=== PATIENT | male | born 1985 | race Caucasian/White ===

== ENCOUNTER 2018-10-17 13:01 | Emergency (ER) | payer SELFPAY ==
[~2018-10-17] VITALS: Ht 170.1 cm; Wt 78.9 kg
== END 2018-10-17 15:24 | disposition home or self-care (01) ==
LOC: ED 13:01
DX: S20.212A Contusion of left front wall of thorax, initial encounter (principal); F17.200 Nicotine dependence, unspecified, uncomplicated; W01.0XXA Fall on same level from slipping, tripping and stumbling without subsequent striking against object, initial encounter; Y93.64 Activity, baseball; Y92.89 Other specified places as the place of occurrence of the external cause; Y99.8 Other external cause status